=== PATIENT | female | born 1985 | race African-American/Black ===

== ENCOUNTER 2022-06-19 23:45 | Emergency (ER) | payer OTHER ==
[2022-06-20 00:31] VITALS: BP 146/80; PULSE 81; RESP 18; TEMP 98.8; BMI 26.2
== END 2022-06-20 00:34 | disposition home or self-care (01) ==
LOC: FER 23:45
DX: N93.9 Abnormal uterine and vaginal bleeding, unspecified (principal)
CPT/HCPCS: 99281-25